=== PATIENT | female | born 1945 | race Caucasian/White ===

== ENCOUNTER → 2017-03-11 | Day surgery (SDC) | payer MEDICARE, BC ==
[~2017-03-11] MED LIST: ASPI81TA11 PO; ASPI81TA82 PO; BUPIVACAINE HCL PF 0.5% 30 ML VIAL ONE; CLOP75TA PO; DAPA1TAB3 PO; ESCI20TA PO; GLYB1TAB51 PO; GLYB2.5T3 PO; HYDR-3583 PO; HYDR10SO PO; JINT1TAB PO; LEVO150T7 PO; LEVO25TA6 PO; LISI-363 PO; LISI-515 PO; LISI2.5T3 PO; LISI40TA PO; LOPI600T PO; NP T90TA PO; OMEP40CA2 PO; OXAP600 PO; PARO40TA2 PO; PERC10TA27 PO; POTA-163 PO; PROPOFOL 200 MG/20 ML AMP IV ONE; Q-PA500T3 PO; TAZT360C2 PO; TIZA4TAB PO; TRIAMCINOLONE ACETONIDE 40 MG/ML VIAL I-ARTICULR ONE; VENL25TA14 PO; VENL75TA PO; methylPREDNISolone ACETATE 40 MG/ML VIAL I-ARTICULR ONE
--- NOTE | 2017-03-15 11:46 | M6 ---
cc: ZAINA SOMERS M.D. Corrected: 03/23/17 DATE: 03/11/2017 DATE OF : 1945. PROCEDURE: Fluroscopically guided injection bilateral sacroiliac joints. History and physical was completed and signed. Consent was signed. Procedure site was marked. Medications were listed and reconciled. Pain score was recorded. Allergies were noted. Time out was taken. Fluoroscopy time was recorded where applicable. Sedation was administered or directed by Dr. Somers. The patient was given oxygen. The patient was monitored by a registered nurse. Total procedure time was greater than 15 minutes. PROCEDURE: IV was started, blood pressure cuff, pulse oximeter and EKG were applied. The patient was placed in the prone position on a Jaspreet table sedated with small amounts of propofol titrated to effect. Vital signs were monitored and remained stable throughout the procedure the fluoroscopy was used shooting from medial to lateral to clearly visualize the posterior joint line of the bilateral sacroiliac joint. Separate sterile 5-inch 22-gauge spinal needles were advanced into the joints under fluoroscopic guidance. There was negative aspiration for blood or any other type of fluid at each location the patient was given 2 mL of 0.5% Marcaine 20 mg of Depo-Medrol 20 mg of Kenalog. Following the procedure the patient was taken to the recovery room with stable vital signs neurologically intact. W. MD RANDOLPH Nael/lis /8:47 AM /11:42 AM EDITH
== END | disposition home or self-care (01) ==
LOC: PHSDC 07:44
PROVIDERS: ATTEND Pain Medicine Interventional Pain Medicine
DX: M54.5 Low back pain (principal); M53.3 Sacrococcygeal disorders, not elsewhere classified
CPT/HCPCS: G0260; J1030; J3301; 27096

== ENCOUNTER 2017-04-02 19:07 | Inpatient (IN) | payer MEDICARE, BC ==
[~2017-04-02] VITALS: Ht 162.6 cm; Wt 68.0 kg
[~2017-04-02 19:07] MED LIST changes: -ASPI81TA82 PO; -BUPIVACAINE HCL PF 0.5% 30 ML VIAL ONE; -CLOP75TA PO; -DAPA1TAB3 PO; -ESCI20TA PO; -GLYB1TAB51 PO; -HYDR10SO PO; -JINT1TAB PO; -LEVO25TA6 PO; -LISI-363 PO; -LISI-515 PO; -LISI2.5T3 PO; -LOPI600T PO; -NP T90TA PO; -OXAP600 PO; -PARO40TA2 PO; -PERC10TA27 PO; -POTA-163 PO; -PROPOFOL 200 MG/20 ML AMP IV ONE; -TAZT360C2 PO; -TIZA4TAB PO; -TRIAMCINOLONE ACETONIDE 40 MG/ML VIAL I-ARTICULR ONE; -VENL25TA14 PO; -methylPREDNISolone ACETATE 40 MG/ML VIAL I-ARTICULR ONE
[2017-04-02 19:18] VITALS: BP 148/91; PULSE 75; RESP 24; TEMP 98.6; O2SAT 97
[2017-04-02] MEDS ORDERED: HYDROmorphone HCL PF 1 MG/ML VIAL IV PUSH ONE (19:45)
[2017-04-02 20:20] LABS: AUTOMATED NEUTROPHIL # 3.3 TH/MM3 (1.8-7.7); BASOPHIL % 0.5 % (0.0-2.0); EOSINOPHIL % 0.2 % (0.0-4.0); HEMATOCRIT 39.7 % (35.0-46.0); HEMO FLAGS DIFF FINAL; LYMPH % 28.9 % (9.0-44.0); LYMPHOCYTE # 1.5 TH/MM3 (1.0-4.8); MEAN CELL VOLUME 87.7 FL (80.0-100.0); MEAN CORPUSCULAR HEMOGLOBIN 29.3 PG (27.0-34.0); MEAN CORPUSCULAR HGB CONC 33.4 % (32.0-36.0); MONO % 7.1 % (0.0-8.0); NEUT % 63.3 % (16.0-70.0); PLATELET COUNT 185 TH/MM3 (150-450); RED BLOOD COUNT 4.53 MIL/MM3 (4.00-5.30); RED CELL DISTRIBUTION WIDTH 15.5 % (11.6-17.2); WHITE BLOOD COUNT 5.2 TH/MM3 (4.0-11.0)
--- NOTE | 2017-04-02 20:32 | RADRPT ---
EXAM DATE/TIME: 04/02/2017 20:13 [facility] COMPARISON: No previous studies available for comparison. INDICATIONS : Trauma, fall. RADIATION DOSE: 46.25 CTDIvol (mGy) MEDICAL HISTORY : Diabetes. SURGICAL HISTORY : Thoracic 2-5 fusion. ENCOUNTER: Initial ACUITY: 1 day PAIN SCALE: 3/10 LOCATION: cranial TECHNIQUE: Multiple contiguous axial images were obtained of the head. Using automated exposure control and adj ustment of the mA and/or kV according to patient size, radiation dose was kept as low as reasonably a chievable to obtain optimal diagnostic quality images. DICOM format image data is available electro nically for review and comparison. FINDINGS: CEREBRUM: The ventricles are normal for age. No evidence of midline shift, mass lesion, hemorrhage or acute in farction. No extra-axial fluid collections are seen. POSTERIOR FOSSA: The cerebellum and brainstem are intact. The 4th ventricle is midline. The cerebellopontine angle i s unremarkable. EXTRACRANIAL: The visualized portion of the orbits is intact. SKULL: The calvaria is intact. No evidence of skull fracture. CONCLUSION: Negative noncontrast head CT. Alexi Prado MD on April 02, 2017 at 20:30 Board Certified Radiologist. This report was verified electronically.
[2017-04-02 20:34] LABS: BICARBONATE 22.2 MEQ/L (21.0-32.0); POTASSIUM 3.8 MEQ/L (3.5-5.1)
--- NOTE | 2017-04-02 20:35 | RADRPT ---
EXAM DATE/TIME: 04/02/2017 20:13 [facility] COMPARISON: No previous studies available for comparison. INDICATIONS : Trauma, fall. RADIATION DOSE: 21.60 CTDIvol (mGy) MEDICAL HISTORY : Diabetes. SURGICAL HISTORY : Thoracic 2-5 fusion. ENCOUNTER: Initial ACUITY: 1 day PAIN SCALE: 2/10 LOCATION: neck TECHNIQUE: Volumetric scanning of the cervical spine was performed. Multiplanar reconstructions in the sagittal, coronal and oblique axial planes were performed. Using automated exposure control and adjustment o f the mA and/or kV according to patient size, radiation dose was kept as low as reasonably achievable to obtain optimal diagnostic quality images. DICOM format image data is available electronically f or review and comparison. FINDINGS: VERTEBRAE: Normal vertebral body height. ALIGNMENT: No evidence of subluxation. C2-C3: The bony spinal canal is normal in size. No evidence of disc bulge or herniation. The neural forami na are bilaterally patent. C3-C4: Mild disc space narrowing with left-sided predominant uncovertebral and facet osteoarthritis. There i s mild left foraminal stenosis. C4-C5: Mild disc space narrowing with right-sided predominant uncovertebral and facet osteoarthritis. There is moderate right foraminal stenosis. C5-C6: Mild disc space narrowing with left-sided predominant uncovertebral and facet osteoarthritis. There i s mild left foraminal stenosis. C6-C7: The bony spinal canal is normal in size. No evidence of disc bulge or herniation. The neural forami na are bilaterally patent. C7-T1: The bony spinal canal is normal in size. No evidence of disc bulge or herniation. The neural forami na are bilaterally patent. CONCLUSION: 1. No fracture or subluxation of the cervical spine. 2. Degenerative changes as above. There is mainly left-sided foraminal stenosis at C3/C4 and C5/C6 an d mostly right-sided foraminal stenosis at C4/C5. No significant spinal stenosis demonstrated. Alexi Prado MD on April 02, 2017 at 20:31 Board Certified Radiologist. This report was verified electronically.
--- NOTE | 2017-04-02 20:44 | RADRPT ---
EXAM DATE/TIME: 04/02/2017 20:17 [facility] COMPARISON: No previous studies available for comparison. INDICATIONS : Trauma, fall. RADIATION DOSE: 35.86 CTDIvol (mGy) ; Combined studies MEDICAL HISTORY : Diabetes. SURGICAL HISTORY : Fusion, lumbar. ENCOUNTER: Initial ACUITY: 1 day PAIN SCALE: 8/10 LOCATION: lumbar TECHNIQUE: Volumetric scanning of the lumbar spine was performed. Multiplanar reconstructions in the sagittal, coronal and oblique axial planes were performed. Using automated exposure control and adjustment of the mA and/or kV according to patient size, radiation dose was kept as low as reasonably achievable t o obtain optimal diagnostic quality images. DICOM format image data is available electronically for review and comparison. FINDINGS: A couple millimeters of degenerative anterolisthesis noted at L2/L3. No acute-appearing malalignment of the lumbar spine. Lumbar vertebral bodies have normal height. However, there is mild, acute-appear ing superior endplate compression fracture of T12. There is slight effacement of the anterior aspect of the thecal sac, eccentric towards the right. No associated foraminal stenosis.. Previous fusion procedure with interbody and posterior instrumentation at L3/L4 and L4/L5, both level s solidly fused in normal alignment. There is also solid appearing fusion at L5/S1 without hardware. An apparent disc replacement at L2/L3. There is vacuum phenomena of the residual disc space and scler osis and cystic change of the vertebral body endplates. CONCLUSION: 1. Mild, acute superior endplate compression fracture of T12. Mild fracture-associated spinal stenosi s. No significant foraminal stenosis. No epidural hematoma demonstrated.. 2. Lumbar spine is intact. Surgical and degenerative changes as above. Alexi Prado MD on April 02, 2017 at 20:38 Board Certified Radiologist. This report was verified electronically.
--- NOTE | 2017-04-02 20:49 | RADRPT ---
EXAM DATE/TIME: 04/02/2017 20:17 [facility] COMPARISON: No previous studies available for comparison. INDICATIONS : Trauma, fall. ORAL CONTRAST: No oral contrast ingested. RADIATION DOSE: 35.86 CTDIvol (mGy) ; Combined studies MEDICAL HISTORY : Diabetes. SURGICAL HISTORY : Fusion, lumbar. ENCOUNTER: Initial ACUITY: 1 day PAIN SCALE: 8/10 LOCATION: pelvis TECHNIQUE: Volumetric scanning of the pelvis was performed. Using automated exposure control and adjustment of the mA and/or kV according to patient size, radiation dose was kept as low as reasonably achievable t o obtain optimal diagnostic quality images. DICOM format image data is available electronically for review and comparison. FINDINGS: BOWEL/MESENTERY: The visualized small and large bowel demonstrate no acute abnormality. There is no free fluid. BLADDER: There is no wall thickening or mass. RETROPERITONEUM: There is no aneurysm or lymphadenopathy. REPRODUCTIVE: Within normal limits. INGUINAL: There is no lymphadenopathy or hernia. MUSCULOSKELETAL: No acute fracture demonstrated. Mild calcific tendinopathy seen of the right greater and lesser troch anters. Mild acute subcutaneous contusion overlies the right greater trochanter. CONCLUSION: Intact pelvis. Mild subcutaneous contusion right lateral hip area. Calcific tendinopathy changes of t he right lesser and greater trochanters. Alexi Prado MD on April 02, 2017 at 20:45 Board Certified Radiologist. This report was verified electronically.
--- NOTE | 2017-04-02 21:22 | PD ---
HPI Chief Complaint: Back/ Neck Pain or Injury Time Seen by Provider: 19:27 Travel History International Travel<30 days: No Contact w/Intl Traveler<30days: No Traveled to known affect area: No History of Present Illness HPI This is a 71-year-old female who has a history of chronic back pain who has had a lumbar fusion in the past by Dr. Burger who currently presents to the emergency department having had a mechanical fall. She reports severe low back pain, constant, associated with some weakness in her legs. She also hit her head. She says she doesn't remember hitting her head but her daughter was with her. PFSH Past Medical History Diabetes: Yes Patient Takes Glucophage: Yes Diminished Hearing: No Tetanus Vaccination: Unknown ?: Not Social History Alcohol Use: Yes (ocassionally) Tobacco Use: No Substance Use: No Allergies-Medications (Allergen,Severity, Reaction): Coded Allergies: No Known Allergies (Verified , 04/02/17) Reported Meds & Prescriptions Reported Meds & Active Scripts Active Reported Lisinopril 40 Mg Tab 40 Mg PO DAILY Levothyroxine (Levothyroxine Sodium) 150 Mcg Tab 150 Mcg PO DAILY Hydrocodone-Acetaminophen 10-325 mg Tab 1 Tab PO Q6H PRN Glyburide 2.5 Mg Tab 2.5 Mg PO DAILY Take with meals at the same time each day Omeprazole 40 Mg Cap 40 Mg PO DAILY Effexor (Venlafaxine HCl) 75 Mg Tab 75 Mg PO DAILY Q-Pap Extra Strength (Acetaminophen) 500 Mg Tab 500 Mg PO Q4-6H PRN Aspirin EC (Aspirin) 81 Mg Tabdr 81 Mg PO DAILY Review of Systems Except as stated in HPI: all other systems reviewed are Neg Physical Exam Narrative GENERAL:Well appearing, no acute distress SKIN: Focused skin assessment warm and dry. HEAD: Atraumatic. Normocephalic. EYES: Pupils equal and round. No injection or drainage. ENT: Moist mucous membranes NECK: Trachea midline. CARDIOVASCULAR: Regular rate and rhythm. No murmur appreciated. RESPIRATORY: Clear to auscultation. Breath sounds equal bilaterally. GASTROINTESTINAL: Abdomen soft, non-tender, nondistended. MUSCULOSKELETAL: Tender to palpation over the lumbar spine and right paraspinal muscles with no rebound/guarding. NEUROLOGICAL: Slurred speech. No obvious cranial nerve deficits. 5 out of 5 strength in the bilateral lower extremities with normal sensation. PSYCHIATRIC: Some inappropriate laughter Data Data Last Documented VS Vital Signs Date Time Temp Pulse Resp B/P (MAP) Pulse Ox O2 Delivery O2 Flow Rate FiO2 04/02/17 19:18 98.6 75 24 148/91 (110) [address] Brain W/O Iv Contrast(Rout) (04/02/17 ) Ct Cerv Spine W/O Contrast (04/02/17 ) Ct Lumb Spine W/O Contrast (04/02/17 ) Ct Pelvis W/O Iv Contrast (04/02/17 ) ^ Insert Iv (04/02/17 19:38) Hydromorphone Pf Inj (Dilaudid Pf Inj) (04/02/17 19:45) Complete Blood Count With Diff (04/02/17 19:38) Basic Metabolic Panel (Bmp) (04/02/17 19:38) Alcohol (Ethanol) (04/02/17 19:38) Admit Order (Ed Use Only) (04/02/17 21:48) Labs Laboratory Tests Test 04/02/17 20:00 White Blood Count 5.2 TH/MM3 Red Blood Count 4.53 MIL/MM3 Hemoglobin 13.3 GM/DL Hematocrit 39.7 % Mean Corpuscular Volume 87.7 FL Mean Corpuscular Hemoglobin 29.3 PG Mean Corpuscular Hemoglobin Concent 33.4 % Red Cell Distribution Width 15.5 % Platelet Count 185 TH/MM3 Mean Platelet Volume 6.5 FL Neutrophils (%) (Auto) 63.3 % Lymphocytes (%) (Auto) 28.9 % Monocytes (%) (Auto) 7.1 % Eosinophils (%) (Auto) 0.2 % Basophils (%) (Auto) 0.5 % Neutrophils # (Auto) 3.3 TH/MM3 Lymphocytes # (Auto) 1.5 TH/MM3 Monocytes # (Auto) 0.4 TH/MM3 Eosinophils # (Auto) 0.0 TH/MM3 Basophils # (Auto) 0.0 TH/MM3 CBC Comment DIFF FINAL Differential Comment Blood Urea Nitrogen 18 MG/DL Creatinine 1.19 MG/DL Random Glucose 109 MG/DL Calcium Level 9.1 MG/DL Sodium Level 140 MEQ/L Potassium Level 3.8 MEQ/L Chloride Level 108 MEQ/L Carbon Dioxide Level 22.2 MEQ/L Anion Gap 10 MEQ/L Estimat Glomerular Filtration Rate 44 ML/MIN Ethyl Alcohol Level 108 MG/DL MDM Medical Decision Making Medical Screen Exam Complete: Yes Emergency Medical Condition: Yes Interpretation(s) Afebrile, no tachycardia, hypertensive No leukocytosis Mild renal insufficiency Alcohols 108 Last [address] 04/02/17 0000 Signed Impressions: Service Date/Time: Sunday, April 02, 2017 20:17 - CONCLUSION: Intact pelvis. Mild subcutaneous contusion right lateral hip area. Calcific tendinopathy changes of the right lesser and greater trochanters. Alexi Prado MD Lumbar Spine CT 04/02/17 0000 Signed Impressions: Service Date/Time: Sunday, April 02, 2017 20:17 - CONCLUSION: 1. Mild, acute superior endplate compression fracture of T12. Mild fracture-associated spinal stenosis. No significant foraminal stenosis. No epidural hematoma demonstrated.. 2. Lumbar spine is intact. Surgical and degenerative changes as above. Alexi Prado MD Head CT 04/02/17 0000 Signed Impressions: Service Date/Time: Sunday, April 02, 2017 20:13 - CONCLUSION: Negative noncontrast head CT. Alexi Prado MD Cervical Spine CT 04/02/17 0000 Signed Impressions: Service Date/Time: Sunday, April 02, 2017 20:13 - CONCLUSION: 1. No fracture or subluxation of the cervical spine. 2. Degenerative changes as above. There is mainly left-sided foraminal stenosis at C3/C4 and C5/C6 and mostly right-sided foraminal stenosis at C4/C5. No significant spinal stenosis demonstrated. Alexi Prado MD Differential Diagnosis Compression fracture, pubic ramus fracture, sacroiliitis, intracranial hemorrhage, cervical spine fracture Narrative Course This is a 71-year-old female who presents to the emergency department with a closed head injury and severe low back pain following a mechanical fall. Labs are obtained which demonstrated an alcohol level of 108 which I suspected clinically. CT imaging was obtained which demonstrates a mild compression fracture at T12. Patient has intractable pain. She was given a milligram of Dilaudid but is unable to ambulate in the emergency department. She has a normal neurologic exam. Patient will be admitted for pain control, likely MRI and neurosurgical consultation. Diagnosis Primary Impression: T12 compression fracture Additional Impression: Intractable pain Admitting Information Admitting Physician Requests: Observation Patient Instructions: General Instructions Steph Hirsch MD Apr 02, 2017 21:22
[2017-04-02 22:00] VITALS: BP 196/82; PULSE 68; RESP 20; O2SAT 97
[2017-04-02] MEDS ORDERED: ACETAMINOPHEN 325 MG TAB PO PRN (22:00)
[2017-04-02] MEDS ORDERED: NALOXONE HCL 0.4 MG/ML AMP IV PUSH PRN (22:00)
[2017-04-02] MEDS ORDERED: ONDANSETRON HCL 4 MG/2 ML VIAL IVP PRN (22:00)
[2017-04-02] MEDS ORDERED: BISACODYL 10 MG SUPP RECTAL PRN (22:00)
[2017-04-02] MEDS ORDERED: MAGNESIUM HYDROXIDE SUSP 30 ML CUP PO PRN (22:00)
[2017-04-02] MEDS ORDERED: SODIUM CHLORIDE 0.9% FLUSH 10 ML FLUSH IV FLUSH PRN (22:00)
[2017-04-02] MEDS ORDERED: LACTULOSE SYRUP 20 GM/30 ML CUP PO PRN (22:00)
[2017-04-02] MEDS: SODIUM CHLOR 0.45% 1000 ML INJ 1,000 ML IV SCH (22:40)
[2017-04-02] MEDS: oxyCODONE/ACETAMINOPHEN 10 MG/325 MG TAB PO PRN (22:40)
[2017-04-02 23:30] VITALS: BP 171/78; PULSE 74; RESP 17; TEMP 96.8; O2SAT 95
[2017-04-03] MEDS: oxyCODONE/ACETAMINOPHEN 10 MG/325 MG TAB PO PRN ×5 (03:16→20:26)
[2017-04-03 04:30] VITALS: BP 157/72; PULSE 74; RESP 17; TEMP 97.1; O2SAT 94
[2017-04-03] MEDS: LEVOTHYROXINE SODIUM 150 MCG TAB PO SCH (06:39)
[2017-04-03 08:00] VITALS: BP 200/96; PULSE 79; RESP 18; TEMP 96.5; O2SAT 99
[2017-04-03] MEDS: DOCUSATE SODIUM 50 MG/SENNA 8.6 MG TAB PO SCH ×2 (08:14→20:23)
[2017-04-03] MEDS: PANTOPRAZOLE SOD 40 MG DELAYED RELEASE TAB PO SCH (08:14)
[2017-04-03] MEDS: LISINOPRIL 20 MG TAB PO SCH (08:14)
[2017-04-03] MEDS: VENLAFAXINE HCL XR 75 MG CAP PO SCH (08:14)
[2017-04-03] MEDS: SENNOSIDES 8.6 MG TAB PO PRN (08:14)
[2017-04-03] MEDS: SODIUM CHLORIDE 0.9% FLUSH 10 ML FLUSH IV FLUSH SCH ×2 (08:18→20:23)
[2017-04-03] MEDS: SODIUM CHLOR 0.45% 1000 ML INJ 1,000 ML IV SCH ×2 (08:20→16:25)
[2017-04-03 10:03] LABS: AUTOMATED NEUTROPHIL # 2.6 TH/MM3 (1.8-7.7); BASOPHIL % 0.5 % (0.0-2.0); EOSINOPHIL % 0.5 % (0.0-4.0); HEMO FLAGS DIFF FINAL; LYMPH % 34.5 % (9.0-44.0); LYMPHOCYTE # 1.6 TH/MM3 (1.0-4.8); MEAN CORPUSCULAR HEMOGLOBIN 29.4 PG (27.0-34.0); MEAN CORPUSCULAR HGB CONC 33.4 % (32.0-36.0); MONO % 8.2 % (0.0-8.0); NEUT % 56.3 % (16.0-70.0); PLATELET COUNT 176 TH/MM3 (150-450); RED BLOOD COUNT 4.43 MIL/MM3 (4.00-5.30); RED CELL DISTRIBUTION WIDTH 15.4 % (11.6-17.2); WHITE BLOOD COUNT 4.7 TH/MM3 (4.0-11.0)
[2017-04-03 10:33] LABS: ANION GAP 8 MEQ/L (5-15); AST (GOT) 18 U/L (15-37); BICARBONATE 24.1 MEQ/L (21.0-32.0); BLOOD UREA NITROGEN 20 MG/DL (7-18); CHLORIDE 107 MEQ/L (98-107); GLOMERULAR FILTRATION RATE 51 ML/MIN (>89); POTASSIUM 3.7 MEQ/L (3.5-5.1); SODIUM (NA) 139 MEQ/L (136-145)
[2017-04-03 10:34] LABS: ALT (GPT) 28 U/L (10-53)
[2017-04-03] MEDS ORDERED: POTA-163 PO (10:35)
[2017-04-03] MEDS ORDERED: LISI2.5T3 PO (10:35)
[2017-04-03] MEDS ORDERED: DAPA1TAB3 PO (10:35)
[2017-04-03] MEDS ORDERED: TIZA4TAB PO (10:35)
[2017-04-03 10:36] LABS: ALKALINE PHOSPHATASE 103 U/L (45-117); TOTAL BILIRUBIN ADULT 0.4 MG/DL (0.2-1.0)
[2017-04-03] MEDS ORDERED: CLOP75TA PO (10:36)
[2017-04-03] MEDS ORDERED: PARO40TA2 PO (10:36)
[2017-04-03] MEDS ORDERED: NP T90TA PO (10:36)
--- NOTE | 2017-04-03 10:38 | HHI.HP ---
History of Present Illness Primary Care Physician Fede Dorman, DO Admission Diagnosis T12 compression fracture Diagnoses: History of Present Illness pt fell off chair compressing t12 has had watermaster back problems with 2 prior lumbar surgeries Review of Systems Musculoskeletal: COMPLAINS OF: Back pain Past Family Social History Allergies: Coded Allergies: No Known Allergies (Verified , 04/02/17) Past Medical History hypertension hypothyroidism II diabetes depression Past Surgical History lumbar surgery x 2 Reported Medications Reported Meds & Active Scripts Active Reported Lisinopril 40 Mg Tab 40 Mg PO DAILY Levothyroxine (Levothyroxine Sodium) 150 Mcg Tab 150 Mcg PO DAILY Hydrocodone-Acetaminophen 10-325 mg Tab 1 Tab PO Q6H PRN Glyburide 2.5 Mg Tab 2.5 Mg PO DAILY Take with meals at the same time each day Omeprazole 40 Mg Cap 40 Mg PO DAILY Effexor (Venlafaxine HCl) 75 Mg Tab 75 Mg PO DAILY Q-Pap Extra Strength (Acetaminophen) 500 Mg Tab 500 Mg PO Q4-6H PRN Aspirin EC (Aspirin) 81 Mg Tabdr 81 Mg PO DAILY Active Ordered Medications Inpatient Medications Acetaminophen (Tylenol) 650 mg Q4H PRN PO TEMP > 100.4; Start 04/02/17 at 22:00 Bisacodyl (Dulcolax Supp) 10 mg DAILY PRN RECTAL SEVERE CONSITIPATION; Start at 22:00 Hydromorphone HCl (Dilaudid Pf Inj) 1 mg ONCE ONCE IV PUSH Last administered on 04/02/17 20:08; Start 04/02/17 at 19:45; Stop 04/02/17 at 19:46; Status DC Lactulose (Lactulose Liq) 30 ml DAILY PRN PO SEVERE CONSITIPATION; Start at 22:00 Levothyroxine Sodium (Synthroid) 150 mcg DAILY@0700 PO Last administered on 06:39; Start 04/03/17 at 07:00 Lisinopril (Prinivil) 40 mg DAILY PO Last administered on 04/03/17 08:14; Start 04/03/17 at 09:00 Magnesium Hydroxide (Milk Of Magnesia Liq) 30 ml Q12H PRN PO MILD - MODERATE CONSTIPATION; Start 04/02/17 at 22:00 Naloxone HCl (Narcan Inj) 0.4 mg UNSCH PRN IV PUSH SEE LABEL COMMENTS; Start at 22:00 Ondansetron HCl (Zofran Inj) 4 mg Q6H PRN IVP NAUSEA OR VOMITING; Start at 22:00 Oxycodone/ Acetaminophen (Percocet 10-325 Mg) 1 tab Q4H PRN PO PAIN GREATER THAN 7 Last administered on 04/03/17 08:15; Start 04/02/17 at 22:15 Pantoprazole Sodium (Protonix) 40 mg DAILY PO Last administered on 04/03/17 08 :14; Start 04/03/17 at 09:00 Senna/Docusate Sodium (Monica-Colace) 1 tab BID PO Last administered on 08:14; Start 04/03/17 at 09:00 Sennosides (Senokot) 17.2 mg Q12H PRN PO MODERATE - SEVERE CONSTIPATION Last administered on 04/03/17 08:14; Start 04/02/17 at 22:00 Sodium Chloride (NS Flush) 2 ml BID IV FLUSH ; Start 04/03/17 at 09:00 Venlafaxine HCl (Effexor Xr) 75 mg DAILY PO Last administered on 04/03/17 08: 14; Start 04/03/17 at 09:00 Family History father had an NE mother had heart problems Physical Exam Vital Signs Vital Signs Date Time Temp Pulse Resp B/P (MAP) Pulse Ox O2 Delivery O2 Flow Rate FiO2 04/03/17 08:00 96.5 79 18 200/96 (130) 99 04/03/17 04:30 97.1 74 17 157/72 (100) 94 04/02/17 23:30 96.8 74 17 171/78 (109) 95 04/02/17 23:25 04/02/17 22:00 68 20 196/82 (120) 97 04/02/17 19:18 98.6 75 24 148/91 (110) 97 Physical Exam GENERAL: This is a well-nourished, well-developed patient, in no apparent distress. SKIN: No rashes, ecchymoses or lesions. Cool and dry. HEAD: Atraumatic. Normocephalic. No temporal or scalp tenderness. EYES: Pupils equal round and reactive. Extraocular motions intact. No scleral icterus. No injection or drainage. ENT: Nose without bleeding, purulent drainage or septal hematoma. Throat without erythema, tonsillar hypertrophy or exudate. Uvula midline. Airway patent. NECK: Trachea midline. No JVD or lymphadenopathy. Supple, nontender, no meningeal signs. CARDIOVASCULAR: Regular rate and rhythm without murmurs, gallops, or rubs. RESPIRATORY: Clear to auscultation. Breath sounds equal bilaterally. No wheezes , rales, or rhonchi. GASTROINTESTINAL: Abdomen soft, non-tender, nondistended. No hepato-splenomegaly , or palpable masses. No guarding. MUSCULOSKELETAL: lumbar pain NEUROLOGICAL: Awake and alert. Cranial nerves II through XII intact. Motor and sensory grossly within normal limits. Five out of 5 muscle strength in all muscle groups. Normal speech. Laboratory Laboratory Tests Test 04/02/17 20:00 04/03/17 09:15 White Blood Count 5.2 4.7 Red Blood Count 4.53 4.43 Hemoglobin 13.3 13.0 Hematocrit 39.7 39.0 Mean Corpuscular Volume 87.7 88.0 Mean Corpuscular Hemoglobin 29.3 29.4 Mean Corpuscular Hemoglobin Concent 33.4 33.4 Red Cell Distribution Width 15.5 15.4 Platelet Count 185 176 Mean Platelet Volume 6.5 6.5 Neutrophils (%) (Auto) 63.3 56.3 Lymphocytes (%) (Auto) 28.9 34.5 Monocytes (%) (Auto) 7.1 8.2 Eosinophils (%) (Auto) 0.2 0.5 Basophils (%) (Auto) 0.5 0.5 Neutrophils # (Auto) 3.3 2.6 Lymphocytes # (Auto) 1.5 1.6 Monocytes # (Auto) 0.4 0.4 Eosinophils # (Auto) 0.0 0.0 Basophils # (Auto) 0.0 0.0 CBC Comment DIFF FINAL DIFF FINAL Differential Comment Blood Urea Nitrogen 18 Creatinine 1.19 Random Glucose 109 Calcium Level 9.1 Sodium Level 140 Potassium Level 3.8 Chloride Level 108 Carbon Dioxide Level 22.2 Anion Gap 10 Estimat Glomerular Filtration Rate 44 Ethyl Alcohol Level 108 Result Diagram: 04/03/17 0915 04/02/171999 Imaging Last [address] 04/02/17 0000 Signed Impressions: Service Date/Time: Sunday, April 02, 2017 20:17 - CONCLUSION: Intact pelvis. Mild subcutaneous contusion right lateral hip area. Calcific tendinopathy changes of the right lesser and greater trochanters. Alexi Prado MD Lumbar Spine CT 04/02/17 0000 Signed Impressions: Service Date/Time: Sunday, April 02, 2017 20:17 - CONCLUSION: 1. Mild, acute superior endplate compression fracture of T12. Mild fracture-associated spinal stenosis. No significant foraminal stenosis. No epidural hematoma demonstrated.. 2. Lumbar spine is intact. Surgical and degenerative changes as above. Alexi Prado MD Head CT 04/02/17 0000 Signed Impressions: Service Date/Time: Sunday, April 02, 2017 20:13 - CONCLUSION: Negative noncontrast head CT. Alexi Prado MD Cervical Spine CT 04/02/17 0000 Signed Impressions: Service Date/Time: Sunday, April 02, 2017 20:13 - CONCLUSION: 1. No fracture or subluxation of the cervical spine. 2. Degenerative changes as above. There is mainly left-sided foraminal stenosis at C3/C4 and C5/C6 and mostly right-sided foraminal stenosis at C4/C5. No significant spinal stenosis demonstrated. Alexi Prado MD Capdeei VTE Risk Assessment Caprini VTE Risk Assessment: No/Low Risk (score <= 1) Caprini Risk Assessment Model Point Value = 1 Point Value = 2 Point Value = 3 Point Value = 5 Age 41-60 Minor surgery BMI > 25 kg/m2 Swollen legs Varicose veins or History of unexplained or recurrent spontaneous Oral contraceptives or hormone replacement Sepsis (< 1 month) Serious lung disease, including pneumonia (< 1 month) Abnormal pulmonary function Acute myocardial infarction Congestive heart failure (< 1 month) History of inflammatory bowel disease Medical patient at bed rest Age 61-74 Arthroscopic surgery Major open surgery (> 45 min) Laparoscopic surgery (> 45 min) Malignancy Confined to bed (> 72 hours) Immobilizing plaster cast Central venous access Age >= 75 History of VTE Family history of VTE Factor V Leiden Prothrombin [id number] Lupus anticoagulant Anticardiolipin antibodies Elevated serum homocysteine Heparin-induced thrombocytopenia Other congenital or acquired thrombophilia Stroke (< 1 month) Elective arthroplasty Hip, pelvis, or leg fracture Acute spinal cord injury (< 1 month) Prophylaxis Regimen Total Risk Factor Score Risk Level Prophylaxis Regimen 0-1 Low Early ambulation 2 Moderate Order ONE of the following: *Sequential Compression Device (SCD) *Heparin 5000 units SQ BID 3-4 Higher Order ONE of the following medications: *Heparin 5000 units SQ TID *Enoxaparin/Lovenox 40 mg SQ daily (WT < 150 kg, CrCl > 30 mL/min) *Enoxaparin/Lovenox 30 mg SQ daily (WT < 150 kg, CrCl > 10-29 mL/min) *Enoxaparin/Lovenox 30 mg SQ BID (WT < 150 kg, CrCl > 30 mL/min) AND/OR *Sequential Compression Device (SCD) 5 or more Highest Order ONE of the following medications: *Heparin 5000 units SQ TID (Preferred with Epidurals) *Enoxaparin/Lovenox 40 mg SQ daily (WT < 150 kg, CrCl > 30 mL/min) *Enoxaparin/Lovenox 30 mg SQ daily (WT < 150 kg, CrCl > 10-29 mL/min) *Enoxaparin/Lovenox 30 mg SQ BID (WT < 150 kg, CrCl > 30 mL/min) AND *Sequential Compression Device (SCD) Assessment and Plan Problem List: (1) T12 compression fracture ICD Codes: S22.080A - Wedge compression fracture of T11-T12 vertebra, initial encounter for closed fracture Status: Acute (2) Intractable pain ICD Codes: R52 - Pain, unspecified Status: Acute Assessment and Plan neurosurgical consult Fede Dorman DO Apr 03, 2017 10:38
--- NOTE | 2017-04-03 11:16 | MB ---
cc: LESLIE TATE M.D., GERALD R. D.O. MAYFIELD,ZAINA Hinkle M.D. DATE OF CONSULTATION: 04/03/2017 REASON FOR CONSULTATION T12 compression fracture. 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 She had a fall two weeks ago and had worsening back pain. She denies any numbness or paresthesia in the lower extremities or any weakness or incontinence. She has had a previous surgery with Dr. Burger 10 years ago, L3 to L5 fusion with also fusion at the L5 and S1 level without instrumentation. This surgery was not helpful in controlling her pain and so a few years later, she had another surgery at the L2-3 level with interbody fusion by a neurosurgeon in [place], which did not help with her pain either. She has been undergoing pain management with Dr. Somers although states that the shots are not helping also. Symptoms worsened after this fall which occurred about 2 weeks ago but because of progressive symptoms she presented to the emergency room yesterday. Workup included a CT scan of the head, cervical spine and lumbar spine which reveals mild superior T12 endplate compression fracture with a slight retropulsion on the right side. She has a previous L2-3 interbody fusion and L3 to L5 pedicle screw fixation with interbody fusion and L5-S1 noninstrumented fusion. The cervical spine CT scan does not reveal any fractures and a head CT is negative also. PAST MEDICAL HISTORY 1. Diabetes mellitus. 2. History of L2 to L5 interbody fusion with L3 to L5 pedicle screw fixation with failed back syndrome and chronic low back pain. 3. Hypertension. 4. Hyperlipidemia. 5. History of stroke in 2008. MEDICATIONS 1. Effexor 75 mg daily. 2. Omeprazole 40 mg daily. 3. Lisinopril 20 mg daily. 4. Synthroid 150 micrograms daily. 5. Lorcet 10/325 one q.6 hours p.r.n. 6. Glyburide 2.5 mg daily. 7. Aspirin 81 mg daily. 8. Acetaminophen 500 mg q. 4-6 hours p.r.n. ALLERGIES NO KNOWN DRUG ALLERGIES. SOCIAL HISTORY She is a . Denies any tobacco use and drinks alcohol on occasional basis. She owns a local bar. LABORATORY FINDINGS White blood cell count 4.7, hemoglobin 13, platelet count of 176, sodium 140, potassium 3.8, BUN 18, creatinine 1.19, glucose of 109. Alcohol level of 108 last evening. PHYSICAL EXAMINATION VITAL SIGNS: Temperature 96.5, pulse 79, respiratory rate 18, blood pressure 157/72, oxygen saturation is 95% on room air. HEAD: She has a forehead abrasion. NECK: Neck is supple. CHEST: Clear to auscultation bilaterally. HEART: Regular rate rhythm, normal S1, S2. ABDOMEN: Soft, nontender. Positive bowel sounds. EXTREMITIES: No cyanosis or edema. NEUROLOGIC: She is awake, alert. Cranial nerves are intact. Motor strength in upper and lower extremities 5/5. Normal sensation, symmetric reflexes. Negative Babinski. She complains of pain in the upper to mid back area. Well-healed midline incision sites. IMPRESSION 1. Mild T12 superior endplate compression deformity fracture with a slight retropulsion on the right side after a fall 2 weeks ago. 2. Failed back syndrome with chronic low back pain and history of fusion from L2 to S1. PLAN Recommended conservative management for this T12 vertebral body compression fracture including TLSO brace when out of bed as well as pain management. Once the brace is available her activity status can be increased as tolerated. Recommend followup x-rays of the thoracolumbar spine in 6 weeks to assess for fracture healing, although it may take 3-4 months for this fracture to heal. MD LES Beth/RAJI /10:11 AM /10:40 AM
[2017-04-03 12:00] VITALS: BP 149/70; PULSE 77; RESP 18; TEMP 97.2; O2SAT 95
[2017-04-03 16:00] VITALS: BP 144/74; PULSE 73; RESP 18; TEMP 96.6; O2SAT 98
[2017-04-03 20:35] VITALS: BP 121/64; PULSE 73; RESP 16; TEMP 97.4; O2SAT 95
[2017-04-04] MEDS: oxyCODONE/ACETAMINOPHEN 10 MG/325 MG TAB PO PRN ×4 (00:37→18:33)
[2017-04-04 00:42] VITALS: BP 115/64; PULSE 68; RESP 18; TEMP 96.9; O2SAT 97
[2017-04-04] MEDS: SODIUM CHLOR 0.45% 1000 ML INJ 1,000 ML IV SCH (04:34)
[2017-04-04] MEDS: LEVOTHYROXINE SODIUM 150 MCG TAB PO SCH (06:22)
[2017-04-04 08:00] VITALS: BP 147/76; PULSE 91; RESP 21; TEMP 95.8; O2SAT 99
--- NOTE | 2017-04-04 08:37 | HHI.NSPN ---
(Alonso Mcpherson) History Chief Complaint: Low back pain. (Alonso Mcpherson) Interval History 71-year-old female who has a chronic history of low back pain with failed back surgery syndrome. She had a fall two weeks ago and had worsening back pain. She denies any numbness or paresthesia in the lower extremities or any weakness or incontinence. She has had a previous surgery with Dr. Burger 10 years ago, L3 to L5 fusion with also fusion at the L5 and S1 level without instrumentation. This surgery was not helpful in controlling her pain and so a few years later, she had another surgery at the L2-3 level with interbody fusion by a neurosurgeon in [place], which did not help with her pain either. She has been undergoing pain management with Dr. Somers although states that the shots are not helping also. Symptoms worsened after this fall which occurred about 2 weeks ago but because of progressive symptoms she presented to the emergency room yesterday. Workup included a CT scan of the head, cervical spine and lumbar spine which reveals mild superior T12 endplate compression fracture with a slight retropulsion on the right side. She has a previous L2-3 interbody fusion and L3 to L5 pedicle screw fixation with interbody fusion and L5-S1 noninstrumented fusion. The cervical spine CT scan does not reveal any fractures and a head CT is negative also. 04/04/17: Pt awake and alert. Complains of low back pain. No radiation into the abdomen or LEs. No numbness or paresthesias in LEs. Pt wearing TLSO brace sitting up in bed. (Alonso Mcpherson) Review of Systems General: Negative for: fever, chills, insomnia Respiratory: Negative for: shortness of breath, cough, sputum Cardiovascular: Negative for: chest pain Gastrointestinal: Negative for: nausea, vomitting, diarrhea, constipation ( Alonso Mcpherson) Exam Results Vital Signs Date Time Temp Pulse Resp B/P (MAP) Pulse Ox O2 Delivery O2 Flow Rate FiO2 04/04/17 00:42 96.9 68 18 115/64 (81) 97 Intake and Output 04/04/17 04/04/17 04/05/17 08:00 16:00 00:00 Intake Total 1214 ml Balance 1214 ml (Alonso Mcpherson) Physical Examination Resp: CTA bilaterally Heart: NSR no murmurs Abd: Soft positive bs Skin: No cyanosis or erythema Muscle: Moves all 4 extremities well Neuro: Pt awake and alert. Follows commands well. Speech clear and appropriate. Sensation intact in LEs. (Alonso Mcpherson) Lab, Micro, Other Results Last Impressions Pelvis CT 04/02/17 0000 Signed Impressions: Service Date/Time: Sunday, April 02, 2017 20:17 - CONCLUSION: Intact pelvis. Mild subcutaneous contusion right lateral hip area. Calcific tendinopathy changes of the right lesser and greater trochanters. Alexi Prado MD Lumbar Spine CT 04/02/17 0000 Signed Impressions: Service Date/Time: Sunday, April 02, 2017 20:17 - CONCLUSION: 1. Mild, acute superior endplate compression fracture of T12. Mild fracture-associated spinal stenosis. No significant foraminal stenosis. No epidural hematoma demonstrated.. 2. Lumbar spine is intact. Surgical and degenerative changes as above. Alexi Prado MD Head CT 04/02/17 0000 Signed Impressions: Service Date/Time: Sunday, April 02, 2017 20:13 - CONCLUSION: Negative noncontrast head CT. Alexi Prado MD Cervical Spine CT 04/02/17 0000 Signed Impressions: Service Date/Time: Sunday, April 02, 2017 20:13 - CONCLUSION: 1. No fracture or subluxation of the cervical spine. 2. Degenerative changes as above. There is mainly left-sided foraminal stenosis at C3/C4 and C5/C6 and mostly right-sided foraminal stenosis at C4/C5. No significant spinal stenosis demonstrated. Alexi Prado MD Laboratory Tests Test 04/03/17 09:15 White Blood Count 4.7 TH/MM3 Red Blood Count 4.43 MIL/MM3 Hemoglobin 13.0 GM/DL Hematocrit 39.0 % Mean Corpuscular Volume 88.0 FL Mean Corpuscular Hemoglobin 29.4 PG Mean Corpuscular Hemoglobin Concent 33.4 % Red Cell Distribution Width 15.4 % Platelet Count 176 TH/MM3 Mean Platelet Volume 6.5 FL Neutrophils (%) (Auto) 56.3 % Lymphocytes (%) (Auto) 34.5 % Monocytes (%) (Auto) 8.2 % Eosinophils (%) (Auto) 0.5 % Basophils (%) (Auto) 0.5 % Neutrophils # (Auto) 2.6 TH/MM3 Lymphocytes # (Auto) 1.6 TH/MM3 Monocytes # (Auto) 0.4 TH/MM3 Eosinophils # (Auto) 0.0 TH/MM3 Basophils # (Auto) 0.0 TH/MM3 CBC Comment DIFF FINAL Differential Comment Blood Urea Nitrogen 20 MG/DL Creatinine 1.05 MG/DL Random Glucose 121 MG/DL Total Protein 6.4 GM/DL Albumin 3.4 GM/DL Calcium Level 9.2 MG/DL Alkaline Phosphatase 103 U/L Aspartate Amino Transf (AST/SGOT) 18 U/L Alanine Aminotransferase (ALT/SGPT) 28 U/L Total Bilirubin 0.4 MG/DL Sodium Level 139 MEQ/L Potassium Level 3.7 MEQ/L Chloride Level 107 MEQ/L Carbon Dioxide Level 24.1 MEQ/L Anion Gap 8 MEQ/L Estimat Glomerular Filtration Rate 51 ML/MIN Free Triiodothyronine (T3) pg/dL 1.96 PG/ML (Alonso Mcpherson) Medical Decision Making Impression and Plan A: 71 y/o FM with: 1. Mild T12 superior endplate compression deformity fracture with a slight retropulsion on the right side after a fall 2 weeks ago. 2. Failed back syndrome with chronic low back pain and history of fusion from L2 to S1. PLAN Continue with conservative management for this T12 vertebral body compression fracture including TLSO brace when out of bed as well as pain management. Once the brace is available her activity status can be increased as tolerated. Recommend followup x-rays of the thoracolumbar spine in 6 weeks to assess for fracture healing, although it may take 3-4 months for this fracture to heal. (Alonso Mcpherson) Attending Statement The exam, history, and the medical decision-making described in the above note were completed with the assistance of the mid-level provider. I reviewed and agree with the findings presented. I attest that I had a [id number] encounter with the patient on the same day, and personally performed and documented my assessment and findings in the medical record. (Munir Leong MD) Alonso Mcpherson Apr 04, 2017 08:37 Munir Leong MD Apr 04, 2017 13:35
[2017-04-04] MEDS: SODIUM CHLORIDE 0.9% FLUSH 10 ML FLUSH IV FLUSH SCH ×2 (09:00→19:42)
[2017-04-04] MEDS: DOCUSATE SODIUM 50 MG/SENNA 8.6 MG TAB PO SCH ×2 (10:42→19:39)
[2017-04-04] MEDS: LISINOPRIL 20 MG TAB PO SCH (10:42)
[2017-04-04] MEDS: PANTOPRAZOLE SOD 40 MG DELAYED RELEASE TAB PO SCH (10:42)
[2017-04-04] MEDS: VENLAFAXINE HCL XR 75 MG CAP PO SCH (10:42)
[2017-04-04 12:00] VITALS: BP 145/70; PULSE 74; RESP 19; TEMP 97.8; O2SAT 96
--- NOTE | 2017-04-04 15:08 | HHI.PR ---
Subjective Remarks Patient admitted for coompression fracture with intractable pain and is now wearing a back brace. Objective Vital Signs Date Time Temp Pulse Resp B/P (MAP) Pulse Ox O2 Delivery O2 Flow Rate FiO2 04/04/17 12:00 97.8 74 19 145/70 (95) 96 04/04/17 08:00 95.8 91 21 147/76 (99) 99 04/04/17 00:42 96.9 68 18 115/64 (81) 97 04/03/17 20:35 97.4 73 16 121/64 (83) 95 04/03/17 16:00 96.6 73 18 144/74 (97) 98 I/O 04/03/17 04/03/17 04/03/17 04/04/17 04/04/17 04/04/17 07:00 15:00 23:00 07:00 15:00 23:00 Intake Total 1006 ml 600 ml 1169 ml 1214 ml Balance 1006 ml 600 ml 1169 ml 1214 ml Intake Oral 480 ml 600 ml 480 ml 240 ml IV Total 526 ml 689 ml 974 ml # Voids 2 2 1 2 # Bowel Movements 0 0 0 0 Result Diagram: 04/03/17 0915 04/03/17 0915 Imaging Last Impressions Pelvis CT 04/02/17 0000 Signed Impressions: Service Date/Time: Sunday, April 02, 2017 20:17 - CONCLUSION: Intact pelvis. Mild subcutaneous contusion right lateral hip area. Calcific tendinopathy changes of the right lesser and greater trochanters. Alexi Prado MD Lumbar Spine CT 04/02/17 0000 Signed Impressions: Service Date/Time: Sunday, April 02, 2017 20:17 - CONCLUSION: 1. Mild, acute superior endplate compression fracture of T12. Mild fracture-associated spinal stenosis. No significant foraminal stenosis. No epidural hematoma demonstrated.. 2. Lumbar spine is intact. Surgical and degenerative changes as above. Alexi Prado MD Head CT 04/02/17 0000 Signed Impressions: Service Date/Time: Sunday, April 02, 2017 20:13 - CONCLUSION: Negative noncontrast head CT. Alexi Prado MD Cervical Spine CT 04/02/17 0000 Signed Impressions: Service Date/Time: Sunday, April 02, 2017 20:13 - CONCLUSION: 1. No fracture or subluxation of the cervical spine. 2. Degenerative changes as above. There is mainly left-sided foraminal stenosis at C3/C4 and C5/C6 and mostly right-sided foraminal stenosis at C4/C5. No significant spinal stenosis demonstrated. Alexi Prado MD Objective Remarks Exam reveals lungs are clear to A&P. Heart rate is normal without murmur rub or gallop. Abd is soft and back brace is in place. Exrtremeties are without edema. Patient with considerable pain is now wearing a back brace and she states it helps with the pain. She is taking narcotic analgesics and is now C/O constipation as a result. She has laxatives ordered PRN. Medications and IVs She remains on IV hydration. Assessment and Plan Problem List: (1) Constipation due to pain medication ICD Codes: K59.03 - Drug induced constipation Status: Acute (2) T12 compression fracture ICD Codes: S22.080A - Wedge compression fracture of T11-T12 vertebra, initial encounter for closed fracture Status: Acute (3) Intractable pain ICD Codes: R52 - Pain, unspecified Status: Acute Discussed Condition With Patient Discharge Planning Will F/U surgery recommendations and cont analgesics and back brace for comfort. Aristeo Esparza Apr 04, 2017 15:08
[2017-04-04 16:00] VITALS: BP 142/84; PULSE 83; RESP 19; TEMP 97; O2SAT 97
[2017-04-04 19:44] VITALS: BP 147/78; PULSE 90; RESP 17; TEMP 96.7; O2SAT 98
[2017-04-05 00:06] VITALS: BP 117/56; PULSE 87; RESP 18; TEMP 98.2; O2SAT 97
[2017-04-05] MEDS: SODIUM CHLOR 0.45% 1000 ML INJ 1,000 ML IV SCH (03:11)
[2017-04-05] MEDS: oxyCODONE/ACETAMINOPHEN 10 MG/325 MG TAB PO PRN ×4 (05:23→19:41)
[2017-04-05] MEDS: LEVOTHYROXINE SODIUM 150 MCG TAB PO SCH (05:23)
[2017-04-05 08:00] VITALS: BP 154/75; PULSE 73; RESP 16; TEMP 97; O2SAT 95
[2017-04-05 08:25] LABS: MEAN CELL VOLUME 88.5 FL (80.0-100.0); MEAN CORPUSCULAR HEMOGLOBIN 29.5 PG (27.0-34.0); MEAN CORPUSCULAR HGB CONC 33.4 % (32.0-36.0); PLATELET COUNT 192 TH/MM3 (150-450); RED BLOOD COUNT 4.52 MIL/MM3 (4.00-5.30); RED CELL DISTRIBUTION WIDTH 15.7 % (11.6-17.2); REVIEW FLAG FINAL
--- NOTE | 2017-04-05 08:47 | HHI.NSPN ---
(Alonso Mcpherson) History Chief Complaint: Low back pain. (Alonso Mcpherson) Interval History 71-year-old female who has a chronic history of low back pain with failed back surgery syndrome. She had a fall two weeks ago and had worsening back pain. She denies any numbness or paresthesia in the lower extremities or any weakness or incontinence. She has had a previous surgery with Dr. Burger 10 years ago, L3 to L5 fusion with also fusion at the L5 and S1 level without instrumentation. This surgery was not helpful in controlling her pain and so a few years later, she had another surgery at the L2-3 level with interbody fusion by a neurosurgeon in [place], which did not help with her pain either. She has been undergoing pain management with Dr. Somers although states that the shots are not helping also. Symptoms worsened after this fall which occurred about 2 weeks ago but because of progressive symptoms she presented to the emergency room yesterday. Workup included a CT scan of the head, cervical spine and lumbar spine which reveals mild superior T12 endplate compression fracture with a slight retropulsion on the right side. She has a previous L2-3 interbody fusion and L3 to L5 pedicle screw fixation with interbody fusion and L5-S1 noninstrumented fusion. The cervical spine CT scan does not reveal any fractures and a head CT is negative also. 04/04/17: Pt awake and alert. Complains of low back pain. No radiation into the abdomen or LEs. No numbness or paresthesias in LEs. Pt wearing TLSO brace sitting up in bed. 04/04/17: Pt awake and alert. Complains of low back pain. No radiculopathy or paresthesias in LEs. No numbness or paresthesias in LEs. No weakness in LEs. Pt states she ambulates with TLSO brace on. (Alonso Mcpherson) Review of Systems General: Negative for: fever, chills, insomnia Respiratory: Negative for: shortness of breath, cough, sputum Cardiovascular: Negative for: chest pain Gastrointestinal: Negative for: nausea, vomitting, diarrhea, constipation ( Alonso Mcpherson) Exam Results Vital Signs Date Time Temp Pulse Resp B/P (MAP) Pulse Ox O2 Delivery O2 Flow Rate FiO2 04/05/17 00:06 98.2 87 18 117/56 (76) 97 Intake and Output 04/05/17 04/05/17 04/06/17 08:00 16:00 00:00 Intake Total 360 ml Balance 360 ml (Alonso Mcpherson) Physical Examination Resp: CTA bilaterally Heart: NSR no murmurs Abd: Soft positive bs Skin: No cyanosis or erythema. Facial ecchymosis. Muscle: Moves all 4 extremities well Neuro: Pt awake and alert. Follows commands well. Speech clear and appropriate. Sensation intact in LEs. (Alonso Mcpherson) Lab, Micro, Other Results Last Impressions Pelvis CT 04/02/17 0000 Signed Impressions: Service Date/Time: Sunday, April 02, 2017 20:17 - CONCLUSION: Intact pelvis. Mild subcutaneous contusion right lateral hip area. Calcific tendinopathy changes of the right lesser and greater trochanters. Alexi Prado MD Lumbar Spine CT 04/02/17 0000 Signed Impressions: Service Date/Time: Sunday, April 02, 2017 20:17 - CONCLUSION: 1. Mild, acute superior endplate compression fracture of T12. Mild fracture-associated spinal stenosis. No significant foraminal stenosis. No epidural hematoma demonstrated.. 2. Lumbar spine is intact. Surgical and degenerative changes as above. Alexi Prado MD Head CT 04/02/17 0000 Signed Impressions: Service Date/Time: Sunday, April 02, 2017 20:13 - CONCLUSION: Negative noncontrast head CT. Alexi Prado MD Cervical Spine CT 04/02/17 0000 Signed Impressions: Service Date/Time: Sunday, April 02, 2017 20:13 - CONCLUSION: 1. No fracture or subluxation of the cervical spine. 2. Degenerative changes as above. There is mainly left-sided foraminal stenosis at C3/C4 and C5/C6 and mostly right-sided foraminal stenosis at C4/C5. No significant spinal stenosis demonstrated. Alexi Prado MD Laboratory Tests Test 04/05/17 05:38 White Blood Count 5.0 TH/MM3 Red Blood Count 4.52 MIL/MM3 Hemoglobin 13.4 GM/DL Hematocrit 40.0 % Mean Corpuscular Volume 88.5 FL Mean Corpuscular Hemoglobin 29.5 PG Mean Corpuscular Hemoglobin Concent 33.4 % Red Cell Distribution Width 15.7 % Platelet Count 192 TH/MM3 Mean Platelet Volume 6.5 FL 04/05/17 04/05/17 04/06/17 15:00 23:00 07:00 Intake Total 360 ml Balance 360 ml Intake Oral 360 ml # Voids 2 # Bowel Movements 0 (Alonso Mcpherson) Medical Decision Making Impression and Plan A: 71 y/o FM with: 1. Mild T12 superior endplate compression deformity fracture with a slight retropulsion on the right side after a fall 2 weeks ago. 2. Failed back syndrome with chronic low back pain and history of fusion from L2 to S1. PLAN Continue with conservative management for this T12 vertebral body compression fracture including TLSO brace when out of bed as well as pain management. Once the brace is available her activity status can be increased as tolerated. Recommend followup x-rays of the thoracolumbar spine in 6 weeks to assess for fracture healing, although it may take 3-4 months for this fracture to heal. Neurosurgery will see prn in the hospital. (Alonso Mcpherson) Attending Statement The exam, history, and the medical decision-making described in the above note were completed with the assistance of the mid-level provider. I reviewed and agree with the findings presented. I attest that I had a [id number] encounter with the patient on the same day, and personally performed and documented my assessment and findings in the medical record. (Munir Leong MD) Alonso Mcpherson Apr 05, 2017 08:47 Munir Leong MD Apr 05, 2017 16:25
[2017-04-05 09:01] LABS: POTASSIUM 3.9 MEQ/L (3.5-5.1)
[2017-04-05] MEDS: PANTOPRAZOLE SOD 40 MG DELAYED RELEASE TAB PO SCH (10:20)
[2017-04-05] MEDS: SENNOSIDES 8.6 MG TAB PO PRN (10:20)
[2017-04-05] MEDS: VENLAFAXINE HCL XR 75 MG CAP PO SCH (10:20)
[2017-04-05] MEDS: LISINOPRIL 20 MG TAB PO SCH (10:20)
[2017-04-05] MEDS: DOCUSATE SODIUM 50 MG/SENNA 8.6 MG TAB PO SCH ×2 (10:20→19:30)
[2017-04-05] MEDS: SODIUM CHLORIDE 0.9% FLUSH 10 ML FLUSH IV FLUSH SCH ×2 (10:21→19:42)
[2017-04-05 12:00] VITALS: BP 121/67; PULSE 72; RESP 16; TEMP 96; O2SAT 96
--- NOTE | 2017-04-05 13:15 | HHI.PR ---
Subjective Remarks Patient is alert and oriented. Ecchymotic area noted on face and right hip. Also reports that she is constipated. Objective Vital Signs Date Time Temp Pulse Resp B/P (MAP) Pulse Ox O2 Delivery O2 Flow Rate FiO2 04/05/17 08:00 97.0 73 16 154/75 (101) 95 04/05/17 00:06 98.2 87 18 117/56 (76) 97 04/04/17 19:44 96.7 90 17 147/78 (101) 98 04/04/17 16:00 97.0 83 19 142/84 (103) 97 I/O 04/04/17 04/04/17 04/04/17 04/05/17 04/05/17 04/05/17 07:00 15:00 23:00 07:00 15:00 23:00 Intake Total 1214 ml 720 ml 480 ml 360 ml Balance 1214 ml 720 ml 480 ml 360 ml Intake Oral 240 ml 720 ml 480 ml 360 ml IV Total 974 ml # Voids 2 4 4 2 # Bowel Movements 0 0 0 Result Diagram: 04/05/1738 04/05/17537 Objective Remarks GENERAL: alert and cooperative SKIN: Warm and dry. Ecchymotic area noted on face and right hip HEAD: Normocephalic. EYES: No scleral icterus. No injection or drainage. NECK: Supple, trachea midline. No JVD or lymphadenopathy. CARDIOVASCULAR: Regular rate and rhythm without murmurs, gallops, or rubs. RESPIRATORY: Breath sounds equal bilaterally. No accessory muscle use. GASTROINTESTINAL: Abdomen soft, non-tender, nondistended. MUSCULOSKELETAL: No cyanosis, or edema. BACK: Nontender without obvious deformity. No CVA tenderness. Medications and IVs Current Medications Medications (Trade) Dose Ordered Sig/Rosa Isela Route Start Time Stop Time Status Last Admin Sodium Chloride 1,000 ml @ 75 mls/hr [id number] IV 04/02/17 21:51 04/04/17 04:34 (NS Flush) 2 ml UNSCH PRN IV FLUSH 04/02/17 22:00 (NS Flush) 2 ml BID IV FLUSH 04/03/17 09:00 04/05/17 10:21 (Tylenol) 650 mg Q4H PRN PO 04/02/17 22:00 (Zofran Inj) 4 mg Q6H PRN IVP 04/02/17 22:00 (Narcan Inj) 0.4 mg UNSCH PRN IV PUSH 04/02/17 22:00 (Monica-Colace) 1 tab BID PO 04/03/17 09:00 04/05/17 10:20 (Milk Of Magnesia Liq) 30 ml Q12H PRN PO 04/02/17 22:00 (Senokot) 17.2 mg Q12H PRN PO 04/02/17 22:00 04/05/17 10:20 (Dulcolax Supp) 10 mg DAILY PRN RECTAL 04/02/17 22:00 (Lactulose Liq) 30 ml DAILY PRN PO 04/02/17 22:00 (Synthroid) 150 mcg DAILY@0700 PO 04/03/17 07:00 04/05/17 05:23 (Prinivil) 40 mg DAILY PO 04/03/17 09:00 04/05/17 10:20 (Protonix) 40 mg DAILY PO 04/03/17 09:00 04/05/17 10:20 (Effexor Xr) 75 mg DAILY PO 04/03/17 09:00 04/05/17 10:20 (Percocet 10-325 Mg) 1 tab Q4H PRN PO 04/02/17 22:15 04/05/17 10:21 Assessment and Plan Problem List: (1) Constipation due to pain medication ICD Codes: K59.03 - Drug induced constipation Status: Acute (2) T12 compression fracture ICD Codes: S22.080A - Wedge compression fracture of T11-T12 vertebra, initial encounter for closed fracture Status: Acute (3) Intractable pain ICD Codes: R52 - Pain, unspecified Status: Acute Assessment and Plan 04/05/19 S/p Fall with mild T12 superior compression deformity fracture with slight retropulsion on right side. Per neurosurgery conservative management including TLSO brace and pain management. Recommend follow up Xrays in 6 weeks. Bruising noted on face and right hip Xrays ordered of facial and right hip. HTN : b/P labile continue lisinopril and monitor Hypothyroidism; Continue replacement. Constipation: will order supp today and put on bowel regimen. GERD: Continue PPI Lovenox ordered for DVT prophylaxis Labs in AM Discharge plan to [facility]. I and the RIGGING UP MAN have both examined this patient and reviewed this note and I agree with these findings and plan of care. Sonali Meyers. [facility] Apr 05, 2017 13:15
[2017-04-05] MEDS ORDERED: BISACODYL 10 MG SUPP RECTAL ONE (13:30)
[2017-04-05] MEDS: ENOXAPARIN SODIUM 40 MG/0.4 ML SYRINGE SQ SCH (15:39)
[2017-04-05 16:00] VITALS: BP 137/70; PULSE 69; RESP 16; TEMP 98; O2SAT 99
--- NOTE | 2017-04-05 16:59 | RADRPT ---
EXAM DATE/TIME: 04/05/2017 16:16 [facility] COMPARISON: No previous studies available for comparison. INDICATIONS : Facial pain after fall. MEDICAL HISTORY : None. SURGICAL HISTORY : None. ENCOUNTER: Initial ACUITY: 1 week PAIN SCORE: 3/10 LOCATION: Right cheek and forehead. FINDINGS: Two view examination of the facial bones demonstrates no gross evidence of fracture. No radiopaque f oreign bodies are seen except dental hardware. CONCLUSION: 1. No acute findings. Dio Lundberg MD on April 05, 2017 at 16:55 Board Certified Radiologist. This report was verified electronically.
--- NOTE | 2017-04-05 17:07 | RADRPT ---
EXAM DATE/TIME: 04/05/2017 16:16 [facility] COMPARISON: No previous studies available for comparison. INDICATIONS : Right hip pain after fall. MEDICAL HISTORY : None. SURGICAL HISTORY : None. ENCOUNTER: Initial ACUITY: 1 week PAIN SCORE: 10/10 LOCATION: Right hip. FINDINGS: A two view examination of the right hip was performed. The primary and secondary trabecular pattern of the femoral neck is intact. Mild osteoarthritis is present at the right hip. CONCLUSION: Mild osteoarthritis of the right hip. No acute bony abnormality. Dio Lundberg MD on April 05, 2017 at 16:58 Board Certified Radiologist. This report was verified electronically.
[2017-04-05 19:30] VITALS: BP 143/63; PULSE 81; RESP 18; TEMP 96.9; O2SAT 95
[2017-04-05 23:26] VITALS: BP 139/66; PULSE 72; RESP 18; TEMP 97; O2SAT 98
[2017-04-06] MEDS: LEVOTHYROXINE SODIUM 150 MCG TAB PO SCH (05:34)
[2017-04-06] MEDS: oxyCODONE/ACETAMINOPHEN 10 MG/325 MG TAB PO PRN ×4 (05:35→21:44)
[2017-04-06 08:24] LABS: HEMATOCRIT 38.1 % (35.0-46.0); MEAN CELL VOLUME 89.1 FL (80.0-100.0); MEAN CORPUSCULAR HEMOGLOBIN 29.5 PG (27.0-34.0); MEAN CORPUSCULAR HGB CONC 33.1 % (32.0-36.0); PLATELET COUNT 173 TH/MM3 (150-450); RED BLOOD COUNT 4.28 MIL/MM3 (4.00-5.30); RED CELL DISTRIBUTION WIDTH 15.9 % (11.6-17.2); REVIEW FLAG FINAL
[2017-04-06 08:26] LABS: AUTOMATED NEUTROPHIL # 2.1 TH/MM3 (1.8-7.7); EOSINOPHIL % 1.1 % (0.0-4.0); HEMATOCRIT 37.7 % (35.0-46.0); HEMO FLAGS DIFF FINAL; LYMPH % 35.9 % (9.0-44.0); LYMPHOCYTE # 1.4 TH/MM3 (1.0-4.8); MEAN CELL VOLUME 88.7 FL (80.0-100.0); MEAN CORPUSCULAR HEMOGLOBIN 29.7 PG (27.0-34.0); MEAN CORPUSCULAR HGB CONC 33.5 % (32.0-36.0); MONO % 7.8 % (0.0-8.0); NEUT % 54.2 % (16.0-70.0); PLATELET COUNT 176 TH/MM3 (150-450); RED BLOOD COUNT 4.26 MIL/MM3 (4.00-5.30); RED CELL DISTRIBUTION WIDTH 16.1 % (11.6-17.2); WHITE BLOOD COUNT 3.9 TH/MM3 (4.0-11.0)
[2017-04-06 08:46] LABS: BICARBONATE 26.5 MEQ/L (21.0-32.0); POTASSIUM 3.9 MEQ/L (3.5-5.1)
[2017-04-06] MEDS: DOCUSATE SODIUM 50 MG/SENNA 8.6 MG TAB PO SCH ×2 (08:56→19:45)
[2017-04-06] MEDS: VENLAFAXINE HCL XR 75 MG CAP PO SCH (08:56)
[2017-04-06] MEDS: LISINOPRIL 20 MG TAB PO SCH (08:57)
[2017-04-06] MEDS: PANTOPRAZOLE SOD 40 MG DELAYED RELEASE TAB PO SCH (08:57)
[2017-04-06] MEDS: SODIUM CHLORIDE 0.9% FLUSH 10 ML FLUSH IV FLUSH SCH ×2 (09:00→19:45)
[2017-04-06 10:23] VITALS: BP 146/77; PULSE 69; RESP 16; O2SAT 96
[2017-04-06 12:00] VITALS: BP 148/80; PULSE 73; RESP 16; TEMP 97; O2SAT 98
--- NOTE | 2017-04-06 13:27 | HHI.FF ---
Face to Face Verification Diagnosis: (1) Intractable pain (2) T12 compression fracture Physical Therapy Order: Evaluate and Treat Occupational Therapy Order: Evaluate and Treat Home Health Nursing Order: Medical education Nursing assessment with vital signs I have seen patient Leslie Goodrich on 04/06/17. My clinical findings support the need for the requested home health care services because: Ltd mobility - disease progression Deconditioned w/ increased weakness I certify that my clinical findings support that this patient is homebound because: Unsteady gait/balance Need for psychosocial assistance Sonali Meyers Apr 06, 2017 13:27
--- NOTE | 2017-04-06 13:27 | HHI.PR ---
Subjective Remarks Patient is alert and oriented. Patient agreed to go to rehab this morning however now is refusing to go to SNF Objective Vital Signs Date Time Temp Pulse Resp B/P (MAP) Pulse Ox O2 Delivery O2 Flow Rate FiO2 04/06/17 10:23 69 16 146/77 (100) 96 04/05/17 23:26 97.0 72 18 139/66 (90) 98 04/05/17 19:30 96.9 81 18 143/63 (89) 95 04/05/17 16:00 98.0 69 16 137/70 (92) 99 04/05/17 16:00 98.0 69 16 137/70 (92) 99 I/O 04/05/17 04/05/17 04/05/17 04/06/17 04/06/17 04/06/17 07:00 15:00 23:00 07:00 15:00 23:00 Intake Total 840 ml 480 ml 360 ml Balance 840 ml 480 ml 360 ml Intake Oral 840 ml 480 ml 360 ml # Voids 5 1 1 # Bowel Movements 0 1 0 Result Diagram: 04/06/17 0640 04/06/17 0640 Imaging Last 72 hours Impressions Hip X-Ray 04/05/17 0000 Signed Impressions: Service Date/Time: Wednesday, April 05, 2017 16:16 - CONCLUSION: Mild osteoarthritis of the right hip. No acute bony abnormality. Dio Lundberg MD Facial Bones X-Ray 04/05/17 0000 Signed Impressions: Service Date/Time: Wednesday, April 05, 2017 16:16 - CONCLUSION: 1. No acute findings. Dio Lundberg MD Objective Remarks GENERAL: alert and cooperative SKIN: Warm and dry. Ecchymotic area noted on face and right hip HEAD: Normocephalic. EYES: No scleral icterus. No injection or drainage. NECK: Supple, trachea midline. No JVD or lymphadenopathy. CARDIOVASCULAR: Regular rate and rhythm without murmurs, gallops, or rubs. RESPIRATORY: Breath sounds equal bilaterally. No accessory muscle use. GASTROINTESTINAL: Abdomen soft, non-tender, nondistended. MUSCULOSKELETAL: No cyanosis, or edema. BACK: Nontender without obvious deformity. No CVA tenderness. Medications and IVs Current Medications Medications (Trade) Dose Ordered Sig/Rosa Isela Route Start Time Stop Time Status Last Admin (NS Flush) 2 ml UNSCH PRN IV FLUSH 04/02/17 22:00 (NS Flush) 2 ml BID IV FLUSH 04/03/17 09:00 04/06/17 09:00 (Tylenol) 650 mg Q4H PRN PO 04/02/17 22:00 (Zofran Inj) 4 mg Q6H PRN IVP 04/02/17 22:00 (Narcan Inj) 0.4 mg UNSCH PRN IV PUSH 04/02/17 22:00 (Monica-Colace) 1 tab BID PO 04/03/17 09:00 04/06/17 08:56 (Milk Of Magnesia Liq) 30 ml Q12H PRN PO 04/02/17 22:00 (Senokot) 17.2 mg Q12H PRN PO 04/02/17 22:00 04/05/17 10:20 (Dulcolax Supp) 10 mg DAILY PRN RECTAL 04/02/17 22:00 (Lactulose Liq) 30 ml DAILY PRN PO 04/02/17 22:00 (Synthroid) 150 mcg DAILY@0700 PO 04/03/17 07:00 04/06/17 05:34 (Prinivil) 40 mg DAILY PO 04/03/17 09:00 04/06/17 08:57 (Protonix) 40 mg DAILY PO 04/03/17 09:00 04/06/17 08:57 (Effexor Xr) 75 mg DAILY PO 04/03/17 09:00 04/06/17 08:56 (Percocet 10-325 Mg) 1 tab Q4H PRN PO 04/02/17 22:15 04/06/17 10:39 (Lovenox Inj) 40 mg Q24H SQ 04/05/17 14:00 04/05/17 15:39 Assessment and Plan Problem List: (1) Constipation due to pain medication ICD Codes: K59.03 - Drug induced constipation Status: Acute (2) T12 compression fracture ICD Codes: S22.080A - Wedge compression fracture of T11-T12 vertebra, initial encounter for closed fracture Status: Acute (3) Intractable pain ICD Codes: R52 - Pain, unspecified Status: Acute Assessment and Plan 04/05/19 S/p Fall with mild T12 superior compression deformity fracture with slight retropulsion on right side. Per neurosurgery conservative management including TLSO brace and pain management. Recommend follow up Xrays in 6 weeks. Bruising noted on face and right hip Xrays ordered of facial and right hip. HTN : b/P labile continue lisinopril and monitor Hypothyroidism; Continue replacement. Constipation: will order supp today and put on bowel regimen. GERD: Continue PPI Lovenox ordered for DVT prophylaxis Labs in AM Discharge plan to [facility] rehab. 04/06/19 S/p Fall with mild T12 superior compression deformity fracture with slight retropulsion on right side. Per neurosurgery conservative management including TLSO brace and pain management. Recommend follow up Xrays in 6 weeks. Bruising noted on face and right hip Xrays ordered of facial and right hip with no acute findings. HTN : B/P well controlled this morning at 146/77 continue lisinopril and monitor Hypothyroidism; Continue replacement. Constipation: Resolved +BM GERD: Continue PPI Lovenox ordered for DVT prophylaxis Discharge planning : plan was to [facility] rehab today however patient is refusing. Plan is now for discharge home tomorrow with [facility]. I and the MEDICAL AIDES TEACHER have both examined this patient and reviewed this note and I agree with these findings and plan of care. Sonali Meyers. MEDICAL AIDES TEACHER Apr 06, 2017 13:27
[2017-04-06 16:00] VITALS: BP 130/68; PULSE 75; RESP 16; TEMP 97.3; O2SAT 97
[2017-04-06] MEDS: ENOXAPARIN SODIUM 40 MG/0.4 ML SYRINGE SQ SCH (16:25)
[2017-04-06 19:00] VITALS: BP 135/60; PULSE 71; RESP 18; TEMP 96.4; O2SAT 94
[2017-04-07] VITALS: BP 126/66; PULSE 65; RESP 17; TEMP 96.6; O2SAT 96
[2017-04-07] MEDS: LEVOTHYROXINE SODIUM 150 MCG TAB PO SCH (05:52)
[2017-04-07] MEDS: oxyCODONE/ACETAMINOPHEN 10 MG/325 MG TAB PO PRN ×2 (05:53→13:02)
[2017-04-07 07:05] LABS: MEAN CELL VOLUME 88.4 FL (80.0-100.0); MEAN CORPUSCULAR HEMOGLOBIN 29.5 PG (27.0-34.0); MEAN CORPUSCULAR HGB CONC 33.4 % (32.0-36.0); PLATELET COUNT 170 TH/MM3 (150-450); RED BLOOD COUNT 4.41 MIL/MM3 (4.00-5.30); REVIEW FLAG FINAL; WHITE BLOOD COUNT 3.6 TH/MM3 (4.0-11.0)
[2017-04-07 07:25] LABS: BICARBONATE 26.5 MEQ/L (21.0-32.0); POTASSIUM 3.9 MEQ/L (3.5-5.1)
[2017-04-07 08:00] VITALS: BP 132/60; PULSE 85; RESP 16; TEMP 96.7; O2SAT 95
[2017-04-07] MEDS: PANTOPRAZOLE SOD 40 MG DELAYED RELEASE TAB PO SCH (08:00)
[2017-04-07] MEDS: DOCUSATE SODIUM 50 MG/SENNA 8.6 MG TAB PO SCH (08:01)
[2017-04-07] MEDS: LISINOPRIL 20 MG TAB PO SCH (08:01)
[2017-04-07] MEDS: VENLAFAXINE HCL XR 75 MG CAP PO SCH (08:01)
[2017-04-07] MEDS: SODIUM CHLORIDE 0.9% FLUSH 10 ML FLUSH IV FLUSH SCH (08:01)
[2017-04-07] MEDS ORDERED: LISI-515 PO (08:54)
[2017-04-07] MEDS ORDERED: NP T90TA PO (08:54)
--- NOTE | 2017-04-07 09:10 | HHI.DS ---
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 She had a fall two weeks ago prior to admission and had worsening back pain. She denies any numbness or paresthesia in the lower extremities or any weakness or incontinence. Symptoms worsened after this fall which occurred about 2 weeks ago but because of progressive symptoms she presented to the emergency room. Cervical spine and lumbar spine which reveals mild superior T12 endplate compression fracture with a slight retropulsion on the right side. She has a previous L2-3 interbody fusion and L3 to L5 pedicle screw fixation with interbody fusion and L5-S1 noninstrumented fusion. The cervical spine CT scan does not reveal any fractures. CBC/BMP: 04/07/17 0612 04/07/17 0612 Significant Findings Laboratory Tests Test 04/05/17 05:38 04/06/17 06:40 04/07/17 06:12 Mean Platelet Volume 6.5 FL (7.0-11.0) 6.8 FL (7.0-11.0) Creatinine 1.04 MG/DL (0.50-1.00) 1.12 MG/DL (0.50-1.00) Random Glucose 125 MG/DL (74-106) 145 MG/DL (74-106) 139 MG/DL (74-106) Estimat Glomerular Filtration Rate 52 ML/MIN (>89) 48 ML/MIN (>89) 57 ML/MIN (>89) White Blood Count 3.9 TH/MM3 (4.0-11.0) 3.6 TH/MM3 (4.0-11.0) Blood Urea Nitrogen 22 MG/DL (7-18) 20 MG/DL (7-18) Imaging Last 72 hours Impressions Hip X-Ray 04/05/17 0000 Signed Impressions: Service Date/Time: Wednesday, April 05, 2017 16:16 - CONCLUSION: Mild osteoarthritis of the right hip. No acute bony abnormality. Dio Lundberg MD Facial Bones X-Ray 04/05/17 0000 Signed Impressions: Service Date/Time: Wednesday, April 05, 2017 16:16 - CONCLUSION: 1. No acute findings. Dio Lundberg MD PE at Discharge GENERAL: alert and cooperative SKIN: Warm and dry. Ecchymotic area noted on face and right hip HEAD: Normocephalic. EYES: No scleral icterus. No injection or drainage. NECK: Supple, trachea midline. No JVD or lymphadenopathy. CARDIOVASCULAR: Regular rate and rhythm without murmurs, gallops, or rubs. RESPIRATORY: Breath sounds equal bilaterally. No accessory muscle use. GASTROINTESTINAL: Abdomen soft, non-tender, nondistended. MUSCULOSKELETAL: No cyanosis, or edema. BACK: Nontender without obvious deformity. No CVA tenderness. 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 She had a fall two weeks ago prior to admission and had worsening back pain. She denies any numbness or paresthesia in the lower extremities or any weakness or incontinence. Symptoms worsened after this fall which occurred about 2 weeks ago but because of progressive symptoms she presented to the emergency room. Cervical spine and lumbar spine which reveals mild superior T12 endplate compression fracture with a slight retropulsion on the right side. She has a previous L2-3 interbody fusion and L3 to L5 pedicle screw fixation with interbody fusion and L5-S1 noninstrumented fusion. The cervical spine CT scan does not reveal any fractures. Conservative management for this T12 vertebral body compression fracture including TLSO brace when out of bed as well as pain management. Recommend followup x-rays of the thoracolumbar spine in 6 weeks to assess for fracture healing, although it may take 3-4 months for this fracture to heal. Neurosurgery will see prn in the hospital. Pt Condition on Discharge: Good Discharge Disposition: Disch w/ Home Health Serv Discharge Instructions DIET: Follow Instructions for: As Tolerated, No Restrictions Activities you can perform: Regular-No Restrictions Follow up Referrals: Appointment for Follow Up - 6 Weeks lumbar spine ap/lat xrays prior to visit PCP Follow-up - 1 Week @ [facility] 04/14/17 at 12:00 New Medications: Lisinopril (Lisinopril) 20 Mg Tab 40 MG PO DAILY for Blood Pressure Management for 30 Days, #60 TAB Continued Medications: Acetaminophen (Q-Pap Extra Strength) 500 Mg Tab 500 MG PO Q4-6H PRN for PAIN, TAB [address] (Aspirin EC) 81 Mg Tabdr 81 MG PO DAILY, TAB 0 Refills Clopidogrel (Clopidogrel) 75 Mg Tab 75 MG PO DAILY for Blood Clot Prevention, #30 TAB 0 Refills Dapagliflozin (Farxiga) 10 Mg Tab 10 MG PO DAILY for Blood Sugar Management, #30 TAB 0 Refills Omeprazole (Omeprazole) 40 Mg Cap 40 MG PO DAILY, #30 CAP 0 Refills Paroxetine (Paroxetine) 40 Mg Tab 40 MG PO DAILY, #30 TAB 0 Refills Thyroid (Sorority Supervisor Thyroid) 90 Mg Tab 90 MG PO DAILY for Thyroid Supplement for 30 Days, #30 TAB 0 Refills (This prescription has been renewed) Tizanidine (Tizanidine) 4 Mg Tab 4 MG PO QID for Muscle Spasm, TAB 0 Refills Venlafaxine (Effexor) 75 Mg Tab 75 MG PO DAILY, #30 TAB 0 Refills Discontinued Medications: Glyburide (Glyburide) 2.5 Mg Tab 2.5 MG PO DAILY for Blood Sugar Management, #30 TAB 0 Refills Take with meals at the same time each day Hydrocodone-Acetaminophen (Hydrocodone-Acetaminophen) 10-325 mg Tab 1 TAB PO Q6H PRN for PAIN, TAB 0 Refills Levothyroxine (Levothyroxine) 150 Mcg Tab 150 MCG PO DAILY for Thyroid, #30 TAB 0 Refills Lisinopril (Lisinopril) 2.5 Mg Tab 2.5 MG PO DAILY, #30 TAB 0 Refills Potassium Chloride ER (Potassium Chloride ER) 20 Meq Tab 20 MEQ PO DAILY for Electrolyte Replacement, #30 TAB 0 Refills Sonali Meyers Apr 07, 2017 09:10
[2017-04-07] MEDS ORDERED: PERC10TA27 PO (09:28)
[2017-04-07] MEDS: ENOXAPARIN SODIUM 40 MG/0.4 ML SYRINGE SQ SCH (13:02)
[2017-04-07 14:03] VITALS: RESP 16
== END 2017-04-07 14:53 | disposition home health service (06) | DRG 552 ==
LOC: NEPC 19:07 → NEDA 21:50 → OBSVTOIN 21:58 → N06A 22:59
PROVIDERS: ADMIT Family Medicine; ATTEND Family Medicine
DX: S22.080A Wedge compression fracture of T11-T12 vertebra, initial encounter for closed fracture (principal); S09.90XA Unspecified injury of head, initial encounter; E11.9 Type 2 diabetes mellitus without complications; I10 Essential (primary) hypertension; G89.11 Acute pain due to trauma; G89.29 Other chronic pain; W07.XXXA Fall from chair, initial encounter; E03.9 Hypothyroidism, unspecified; F32.9 Major depressive disorder, single episode, unspecified; M54.5 Low back pain; K59.03 Drug induced constipation; K21.9 Gastro-esophageal reflux disease without esophagitis; E78.5 Hyperlipidemia, unspecified; Z98.1 Arthrodesis status; Z86.73 Personal history of transient ischemic attack (TIA), and cerebral infarction without residual deficits; Z79.84 Long term (current) use of oral hypoglycemic drugs
CPT/HCPCS: 70140; 70450; 72125; 72131; 72192; 73502; 80048; 80053; 80307; 84481; 85025; 85027; 96374; J1170; J1650; L0200; L0484